=== PATIENT | female | born 1945 | race Caucasian/White ===

== ENCOUNTER → 2018-02-01 10:17 | Outpatient (CLI) | payer OTHER, SELFPAY | PROVIDERS: PCP Family Medicine; Visit Provider Family Medicine | DX: M85.88 Other specified disorders of bone density and structure, other site (principal); Z78.0 Asymptomatic menopausal state; Z82.62 Family history of osteoporosis | CPT/HCPCS: 77080 ==

== ENCOUNTER → 2019-07-25 12:58 | Outpatient (CLI) | payer MEDICARE, SELFPAY | PROVIDERS: PCP Family Medicine; Referring Provider Family Medicine; Visit Provider Family Medicine | DX: Z13.820 Encounter for screening for osteoporosis (principal); M81.0 Age-related osteoporosis without current pathological fracture; Z78.0 Asymptomatic menopausal state; Z82.62 Family history of osteoporosis | CPT/HCPCS: 77080 ==

== ENCOUNTER → 2020-02-06 11:10 | Outpatient (CLI) | payer MEDICARE, SELFPAY ==
--- NOTE | 2020-02-06 | DI.MG.S_ITS ---
BILATERAL DIGITAL SCREENING MAMMOGRAM 3D/2D WITH CAD: 02/06/2020 CLINICAL: Routine screening. Family history of breast cancer. Comparison is made to exams dated: 08/29/2018 mammogram, 08/03/2017 mammogram, and 07/21/2016 mammogram - [facility]. The tissue of both breasts is heterogeneously dense. This may lower the sensitivity of mammography. Current study was also evaluated with a Computer Aided Detection (CAD) system. No significant masses, calcifications, or other findings are seen in either breast. There has been no significant interval change. IMPRESSION: NEGATIVE There is no mammographic evidence of malignancy. A 1 year screening mammogram is recommended. This exam was interpreted at Station ID: [id number]. NOTE: For mammograms, a report in lay terms will be sent to the patient. Approximately 15% of breast malignancies will not be visualized mammographically. In the management of a palpable breast mass, a negative mammogram must not discourage biopsy of a clinically suspicious lesion. Electronically Signed By: Issac izaguirre/dulce:02/06/2020 12:39:14 letter sent: Normal Exam ACR BI-RADS Category 1: Negative 3341F
== END ==
PROVIDERS: PCP Family Medicine; Referring Provider Family Medicine; Visit Provider Family Medicine
DX: Z12.31 Encounter for screening mammogram for malignant neoplasm of breast (principal); Z80.3 Family history of malignant neoplasm of breast
CPT/HCPCS: 77063; 77067

== ENCOUNTER → 2020-10-07 12:39 | Outpatient (CLI) | payer MEDICARE, SELFPAY | PROVIDERS: PCP Family Medicine; Referring Provider Family Medicine; Visit Provider Family Medicine | DX: M81.0 Age-related osteoporosis without current pathological fracture (principal); Z78.0 Asymptomatic menopausal state; Z82.62 Family history of osteoporosis | CPT/HCPCS: 77080 ==

== ENCOUNTER → 2021-03-03 11:41 | Outpatient (CLI) | payer MEDICARE, SELFPAY ==
--- NOTE | 2021-03-03 | DI.MG.S_ITS ---
BILATERAL DIGITAL SCREENING MAMMOGRAM 3D/2D WITH CAD: 03/03/2021 CLINICAL: Routine screening. Family history of breast cancer. Comparison is made to exams dated: 02/06/2020 mammogram - [facility], 08/29/2018 mammogram, and 08/03/2017 mammogram - [facility]. The tissue of both breasts is heterogeneously dense. This may lower the sensitivity of mammography. Current study was also evaluated with a Computer Aided Detection (CAD) system. No significant masses, calcifications, or other findings are seen in either breast. There has been no significant interval change. IMPRESSION: NEGATIVE There is no mammographic evidence of malignancy. A 1 year screening mammogram is recommended. This exam was interpreted at Station ID: [id number]. NOTE: For mammograms, a report in lay terms will be sent to the patient. Approximately 15% of breast malignancies will not be visualized mammographically. In the management of a palpable breast mass, a negative mammogram must not discourage biopsy of a clinically suspicious lesion. Electronically Signed By: Bernardino Fournier M.D., jr/dulce:03/03/2021 16:45:12 letter sent: Normal Exam ACR BI-RADS Category 1: Negative 3341F
== END ==
PROVIDERS: Referring Provider Family Medicine; Visit Provider Family Medicine
DX: Z12.31 Encounter for screening mammogram for malignant neoplasm of breast (principal); Z80.3 Family history of malignant neoplasm of breast
CPT/HCPCS: 77063; 77067

== ENCOUNTER → 2021-08-03 09:39 | Outpatient (CLI) | payer MEDICARE, SELFPAY ==
[2021-08-03 18:27] LABS: Add Manual Diff / Slide Review NO; Basophils Absolute Auto 100 /uL (0-100); Basophils Percent Auto 0.7 % (0-2); Eosinophils Absolute Auto 100 /uL (0-450); Hematocrit 38.7 % (36-46); Hemoglobin 13.2 g/dL (12.0-16.0); Lymphocytes Absolute Auto 1200 /uL (1100-4500); Mean Corpuscular HGB Conc 34.1 % (30-36); Mean Corpuscular Hemoglobin 29.4 PG (26-34); Mean Corpuscular Volume 86.4 fL (80-100); Monocytes Absolute Auto 600 /uL (0-900); Monocytes Percent Auto 7.7 % (3-14); Neutrophils Absolute Auto 5400 /uL (1500-7000); Neutrophils Percent Auto 74.6 % (50-75); Platelet Count 209 X10^3/uL (150-400); Red Blood Cell Count 4.48 X10^6/uL (4.0-5.2); Red Cell Distribution Width 13.5 % (11.6-14.8); White Blood Cell Count 7.3 X10^3/uL (4.5-11.0)
[2021-08-03 19:07] LABS: Alanine Aminotransferase 14 IU/L (<35); Albumin 4.4 g/dL (3.5-5.0); Albumin Globulin Ratio 1.8 (1.0-2.8); Alkaline Phosphatase 47 U/L (38-126); Aspartate Aminotransferase 23 IU/L (14-36); BUN Creatinine Ratio 21.1 (6-22); Bilirubin Total 1.3 mg/dL (0.2-1.3); Blood Urea Nitrogen 16 mg/dL (7-17); Calcium 9.7 mg/dL (8.4-10.2); Carbon Dioxide 31 mmol/L (22-32); Chloride 106 mmol/L (98-107); Estimated Glomerular Filt Rate > 60.0 mL/min (>60); Globulin 2.5 g/dL (1.7-4.1); Glucose 100 mg/dL (80-110); HEMOLYSIS < 15 (0-50); Potassium 4.3 mmol/L (3.4-5.1); Sodium 140 mmol/L (137-145); Total Protein 6.9 g/dL (6.3-8.2)
[2021-08-03 19:23] LABS: TSH w/ Reflex to FT4 1.87 uIU/mL (0.47-4.68)
== END ==
PROVIDERS: PCP Physician Assistant; Visit Provider Physician Assistant
DX: E78.2 Mixed hyperlipidemia (principal); M25.50 Pain in unspecified joint; M81.0 Age-related osteoporosis without current pathological fracture; M79.89 Other specified soft tissue disorders
CPT/HCPCS: 80053; 84443; 85025

== ENCOUNTER → 2021-10-13 08:37 | Outpatient (CLI) | payer MEDICARE, SELFPAY ==
[2021-10-13 19:38] LABS: Vitamin B12 Reflex MMA if <400 888 pg/mL (239-931)
== END ==
PROVIDERS: PCP Physician Assistant; Visit Provider Physician Assistant
DX: R29.90 Unspecified symptoms and signs involving the nervous system (principal)
CPT/HCPCS: 82607

== ENCOUNTER → 2022-03-03 14:35 | Outpatient (CLI) | payer MEDICARE, SELFPAY ==
[2022-03-03 19:32] LABS: BUN Creatinine Ratio 21.3 (6-22); Blood Urea Nitrogen 16 mg/dL (7-17); Estimated Glomerular Filt Rate > 60 mL/min (>60)
== END ==
PROVIDERS: PCP Physician Assistant; Visit Provider Physician Assistant
DX: Z01.812 Encounter for preprocedural laboratory examination (principal)
CPT/HCPCS: 82565; 84520

== ENCOUNTER → 2022-03-19 10:31 | Outpatient (CLI) | payer MEDICARE, SELFPAY ==
--- NOTE | 2022-03-19 10:34 | DI.MRI.S_ITS ---
PROCEDURE: MR HEAD/BRAIN WO/W CON INDICATIONS: Tremor, unspecified TECHNIQUE: Noncontrast axial T1 spin echo, axial T2 fast spin echo, sagittal and axial FLAIR, coronal T2 fast spin echo, axial gradient echo, axial diffusion and ADC through the brain. After the administration of contrast, axial and coronal and sagittal 3D VIBE or T1 spin echo with fat saturation through the brain. COMPARISON: None. FINDINGS: Image quality: Excellent. CSF Spaces: Basal cisterns are patent. No extra-axial fluid collections. Ventricles are normal in size and shape. Brain: No intracranial masses or hemorrhage. Whitehead/white matter interface is normal. Brainstem appears normal. Diffusion-weighted images demonstrate no acute infarct. Normal intravascular flow voids are present. Mild atrophy and multifocal white matter chronic ischemic change noted. Skull and face: Calvarial marrow is normal in signal. Orbits appear normal. Bilateral intraocular lens replacements noted. Sinuses: Sinuses and mastoids appear clear. IMPRESSION: 1. Mild atrophy and trace white matter chronic ischemic change without intracranial hemorrhage, acute infarct or mass lesion Approved by: Pete Waters M.D. on 03/20/2022 at 8:53
--- NOTE | 2022-03-19 10:34 | DI.MG.S_ITS ---
BILATERAL DIGITAL SCREENING MAMMOGRAM 3D/2D WITH CAD: 03/19/2022 CLINICAL: Routine screening. Family history of breast cancer. Comparison is made to exams dated: 03/03/2021 mammogram, 02/06/[address] - [facility], and 08/29/2018 mammogram - [facility]. Both breasts are heterogeneously dense, which may obscure small masses (category c / 51-75% glandular tissue). Current study was also evaluated with a Computer Aided Detection (CAD) system. No significant masses, calcifications, or other findings are seen in either breast. There has been no significant interval change. IMPRESSION: NEGATIVE There is no mammographic evidence of malignancy. A 1 year screening mammogram is recommended. Based on the Tyrer Cuzick model (a risk assessment model) the patient's lifetime risk is 10.0% and her 10 year risk is 9.0%. According to the ACR, ACS, and NCCN guidelines, an annual breast MRI exam along with mammogram is recommended if the patient's lifetime risk is 20% or greater. This exam was interpreted at Station ID: [id number]. NOTE: For mammograms, a report in lay terms will be sent to the patient. Approximately 15% of breast malignancies will not be visualized mammographically. In the management of a palpable breast mass, a negative mammogram must not discourage biopsy of a clinically suspicious lesion. Electronically Signed By: Issac izaguirre/dulce:03/19/2022 13:04:14 letter sent: Normal Exam ACR BI-RADS Category 1: Negative 3341F
== END ==
PROVIDERS: PCP Physician Assistant; Referring Provider Psychiatry & Neurology Neurology; Visit Provider Psychiatry & Neurology Neurology
DX: R25.1 Tremor, unspecified (principal); Z12.31 Encounter for screening mammogram for malignant neoplasm of breast; Z80.3 Family history of malignant neoplasm of breast
CPT/HCPCS: 70553; 77063; 77067; A9579

== ENCOUNTER → 2022-09-12 09:23 | Outpatient (CLI) | payer MEDICARE, SELFPAY ==
[2022-09-12 20:54] LABS: Add Manual Diff / Slide Review NO; Basophils Absolute Auto 100 /uL (0-100); Basophils Percent Auto 0.8 % (0-2); Eosinophils Absolute Auto 200 /uL (0-450); Hematocrit 38.7 % (36-46); Hemoglobin 12.9 g/dL (12.0-16.0); Lymphocytes Absolute Auto 1600 /uL (1100-4500); Lymphocytes Percent Auto 21.1 % (25-40); Mean Corpuscular HGB Conc 33.4 % (30-36); Mean Corpuscular Hemoglobin 28.9 PG (26-34); Mean Corpuscular Volume 86.3 fL (80-100); Monocytes Absolute Auto 800 /uL (0-900); Monocytes Percent Auto 11.1 % (3-14); Neutrophils Absolute Auto 5000 /uL (1500-7000); Platelet Count 255 X10^3/uL (150-400); Red Blood Cell Count 4.49 X10^6/uL (4.0-5.2); Red Cell Distribution Width 13.4 % (11.6-14.8); White Blood Cell Count 7.6 X10^3/uL (4.5-11.0)
[2022-09-12 21:03] LABS: Alanine Aminotransferase 8 IU/L (<35); Albumin Globulin Ratio 1.7 (1.0-2.8); Alkaline Phosphatase 62 U/L (38-126); Aspartate Aminotransferase 21 IU/L (14-36); BUN Creatinine Ratio 21.7 (6-22); Bilirubin Total 1.3 mg/dL (0.2-1.3); Blood Urea Nitrogen 18 mg/dL (7-17); Calcium 9.3 mg/dL (8.4-10.2); Carbon Dioxide 32 mmol/L (22-32); Chloride 100 mmol/L (98-107); Cholesterol 150 mg/dL (140-199); Estimated Glomerular Filt Rate > 60 mL/min (>60); Globulin 2.4 g/dL (1.7-4.1); Glucose 93 mg/dL (80-110); HDL Cholesterol 81 mg/dL (40-60); HEMOLYSIS < 15 (0-50); LDL Cholesterol Calculated 52 mg/dL (<100); Potassium 4.7 mmol/L (3.4-5.1); Sodium 138 mmol/L (137-145); Total Protein 6.4 g/dL (6.3-8.2); Triglycerides 85 mg/dL (35-150)
[2022-09-13 06:01] LABS: TSH w/ Reflex to FT4 1.96 uIU/mL (0.47-4.68)
== END ==
PROVIDERS: PCP Physician Assistant; Visit Provider Physician Assistant
DX: E78.2 Mixed hyperlipidemia (principal); K57.90 Diverticulosis of intestine, part unspecified, without perforation or abscess without bleeding; R49.0 Dysphonia; Z79.899 Other long term (current) drug therapy
CPT/HCPCS: 80053; 80061; 84443; 85025

== ENCOUNTER → 2023-01-10 08:53 | Outpatient (CLI) | payer MEDICARE, SELFPAY ==
[2023-01-10 20:27] LABS: Cholesterol 172 mg/dL (140-199); HDL Cholesterol 75 mg/dL (40-60); LDL Cholesterol Calculated 79 mg/dL (<100); Triglycerides 92 mg/dL (35-150)
== END ==
PROVIDERS: PCP Physician Assistant; Visit Provider Physician Assistant
DX: E78.2 Mixed hyperlipidemia (principal)
CPT/HCPCS: 80061

== ENCOUNTER → 2023-04-11 15:17 | Outpatient (CLI) | payer MEDICARE, SELFPAY ==
--- NOTE | 2023-04-11 | DI.MG.S_ITS ---
BILATERAL DIGITAL SCREENING MAMMOGRAM 3D/2D WITH CAD: 04/11/2023 CLINICAL: Routine screening. Family history of breast cancer. Comparison is made to exams dated: 03/19/2022 mammogram, 03/03/2021 mammogram, and 02/06/2020 mammogram - [facility]. Both breasts are heterogeneously dense, which may obscure small masses (category c / 51-75% glandular tissue). Current study was also evaluated with a Computer Aided Detection (CAD) system. No significant masses, calcifications, or other findings are seen in either breast. There has been no significant interval change. IMPRESSION: NEGATIVE There is no mammographic evidence of malignancy. A 1 year screening mammogram is recommended. Based on the Tyrer Cuzick model (a risk assessment model) the patient's lifetime risk is 9.2% and her 10 year risk is 9.2%. According to the ACR, ACS, and NCCN guidelines, an annual breast MRI exam along with mammogram is recommended if the patient's lifetime risk is 20% or greater. This exam was interpreted at Station ID: [id number]. NOTE: For mammograms, a report in lay terms will be sent to the patient. Approximately 15% of breast malignancies will not be visualized mammographically. In the management of a palpable breast mass, a negative mammogram must not discourage biopsy of a clinically suspicious lesion. Electronically Signed By: Issac izaguirre/dulce:04/12/2023 08:24:11 letter sent: Normal Exam ACR BI-RADS Category 1: Negative 3341F
== END ==
PROVIDERS: PCP Physician Assistant; Referring Provider Physician Assistant; Visit Provider Physician Assistant
DX: Z12.31 Encounter for screening mammogram for malignant neoplasm of breast (principal); Z80.3 Family history of malignant neoplasm of breast
CPT/HCPCS: 77063; 77067

== ENCOUNTER → 2023-07-18 09:25 | Outpatient (CLI) | payer MEDICARE, SELFPAY ==
[2023-07-18 19:16] LABS: Add Manual Diff / Slide Review NO; Basophils Absolute Auto 100 /uL (0-100); Eosinophils Absolute Auto 200 /uL (0-450); Eosinophils Percent Auto 2.2 % (2-4); Hematocrit 40.4 % (36-46); Hemoglobin 13.5 g/dL (12.0-16.0); Lymphocytes Absolute Auto 1900 /uL (1100-4500); Lymphocytes Percent Auto 23.5 % (25-40); Mean Corpuscular HGB Conc 33.5 % (30-36); Mean Corpuscular Hemoglobin 28.5 PG (26-34); Mean Corpuscular Volume 85.1 fL (80-100); Monocytes Absolute Auto 700 /uL (0-900); Monocytes Percent Auto 9.3 % (3-14); Neutrophils Absolute Auto 5200 /uL (1500-7000); Platelet Count 267 X10^3/uL (150-400); Red Blood Cell Count 4.75 X10^6/uL (4.0-5.2); Red Cell Distribution Width 13.3 % (11.6-14.8); White Blood Cell Count 8.1 X10^3/uL (4.5-11.0)
[2023-07-18 19:31] LABS: Alanine Aminotransferase 5 IU/L (<35); Albumin 4.1 g/dL (3.5-5.0); Albumin Globulin Ratio 1.5 (1.0-2.8); Alkaline Phosphatase 59 U/L (38-126); Aspartate Aminotransferase 24 IU/L (14-36); BUN Creatinine Ratio 21.7 (6-22); Bilirubin Total 1.2 mg/dL (0.2-1.3); Blood Urea Nitrogen 18 mg/dL (7-17); Calcium 9.7 mg/dL (8.4-10.2); Carbon Dioxide 29 mmol/L (22-32); Chloride 102 mmol/L (98-107); Cholesterol 148 mg/dL (140-199); Estimated Glomerular Filt Rate > 60 mL/min (>60); Globulin 2.7 g/dL (1.7-4.1); Glucose 97 mg/dL (80-110); HDL Cholesterol 83 mg/dL (40-60); HEMOLYSIS < 15 (0-50); LDL Cholesterol Calculated 47 mg/dL (<100); Potassium 4.7 mmol/L (3.4-5.1); Sodium 138 mmol/L (137-145); Total Protein 6.8 g/dL (6.3-8.2); Triglycerides 91 mg/dL (35-150)
== END ==
PROVIDERS: PCP Physician Assistant; Visit Provider Physician Assistant
DX: E78.2 Mixed hyperlipidemia (principal); Z79.899 Other long term (current) drug therapy
CPT/HCPCS: 80053; 80061; 85025

== ENCOUNTER → 2023-11-22 11:41 | Outpatient (CLI) | payer MEDICARE, SELFPAY ==
--- NOTE | 2023-11-22 11:43 | DI.RAD.S_ITS ---
PROCEDURE: XR DEXA AXIAL SKELETON INDICATIONS: height loss. Last dexa 10/07/20. On Fosamax. COMPARISON: [facility], , XR DEXA AXIAL SKELETON, 10/07/2020, 12:58. FINDINGS: Lumbar Spine: Bone mineral density 0.780 g/cm2, T score -2.4. Left Hip: Bone mineral density 0.733 g/cm2, T score -1.7. Left Femoral Neck: Bone mineral density 0.583 g/cm2, T score -2.4. Right Hip: Bone mineral density 0.778 g/cm2, T score -1.3. Right Femoral Neck: Bone mineral density 0.606 g/cm2, T score -2.2. Fracture Risk Calculation (when applicable): 10-year fracture risk of a major osteoporotic fracture 28% and of a hip fracture 19%. (T score greater or equal to -1.0 to: NORMAL) (T score from -1.1 to -2.4: OSTEOPENIA) (T score less than or equal to -2.5: OSTEOPOROSIS) IMPRESSION: Osteopenia. Follow-up guidelines as follows: Osteoporosis: Consider a repeat DEXA and Vertebral Fracture Assessment (VFA) exam in 2 years or sooner if medically necessary, to reassess this patient's status. Osteopenia: Consider a repeat DEXA in 2-3 years to reassess this patient's status, or if there is a new clinical indication. Normal: Consider a repeat DEXA in 5 years or sooner, or if there is a new clinical indication. All treatment decisions require clinical judgment and consideration of individual patient factors, including patient preferences, comorbidities, previous drug use, risk factors not captured in the FRAX model (e.g., frailty, falls, vitamin D deficiency, increased bone turnover, interval significant decline in bone density ) and possible under- or over-estimation of fracture risk by FRAX. In addition, the NOF Guide recommends that FDA-approved medical therapies be considered in postmenopausal women and men age >= 50 years with a: * Hip or vertebral (clinical or morphometric) fracture * T-score of <=-2.5 at the spine or hip * Ten-year fracture probability by FRAX of >= 3% for hip fracture or >=20% for major osteoporotic fracture. People with diagnosed cases of osteoporosis or at high risk for fracture should have regular bone mineral density tests. For patients eligible for Medicare, routine testing is allowed once every 2 years. The testing frequency can be increased to one year for patients who have rapidly progressing disease, those who are receiving or discontinuing medical therapy to restore bone mass, or have additional risk factors. Dictated by: Akbar Velasco M.D. on 11/22/2023 at 17:16 Approved by: Akbar Velasco M.D. on 11/22/2023 at 17:22
== END ==
PROVIDERS: PCP Physician Assistant; Referring Provider Physician Assistant; Visit Provider Physician Assistant
DX: M81.0 Age-related osteoporosis without current pathological fracture (principal)
CPT/HCPCS: 77080

== ENCOUNTER → 2023-12-07 11:12 | Outpatient (CLI) | payer MEDICARE, SELFPAY ==
[2023-12-07 20:00] LABS: Alanine Aminotransferase 8 IU/L (<35); Albumin 4.4 g/dL (3.5-5.0); Albumin Globulin Ratio 1.8 (1.0-2.8); Alkaline Phosphatase 79 U/L (38-126); Aspartate Aminotransferase 30 IU/L (14-36); Blood Urea Nitrogen 20 mg/dL (7-17); Calcium 9.8 mg/dL (8.4-10.2); Carbon Dioxide 28 mmol/L (22-32); Chloride 106 mmol/L (98-107); Estimated Glomerular Filt Rate > 60 mL/min (>60); Globulin 2.5 g/dL (1.7-4.1); Glucose 106 mg/dL (80-110); HEMOLYSIS 28 (0-50); Potassium 4.6 mmol/L (3.4-5.1); Sodium 138 mmol/L (137-145); Total Protein 6.9 g/dL (6.3-8.2)
== END ==
PROVIDERS: PCP Physician Assistant; Visit Provider Physician Assistant
DX: Z01.812 Encounter for preprocedural laboratory examination (principal); M85.80 Other specified disorders of bone density and structure, unspecified site
CPT/HCPCS: 80053; 82306

== ENCOUNTER → 2023-12-11 12:42 | Outpatient (CLI) | payer MEDICARE, SELFPAY ==
--- NOTE | 2023-12-11 12:44 | DI.CT.S_ITS ---
PROCEDURE: CT CHEST W CON INDICATIONS: persistent cough. SOB. Abnormal CXRs TECHNIQUE: After the administration of intravenous contrast, 5 mm thick sections acquired from the pulmonary apices to the posterior costophrenic angles. 1 mm axial lung, 5 mm thick coronal and sagittal reformats and 7 mm axial MIP were acquired. For radiation dose reduction, the following was used: automated exposure control, adjustment of mA and/or kV according to patient size. COMPARISON: [facility]), CR, XR CHEST 2V, 11/15/2023, 9:59. [facility]), CR, XR CHEST 2V, 12/04/2023, 14:16. FINDINGS: Image quality: Diagnostic. Lower Neck: No enlarged lymph nodes. Thyroid: Normal CT appearance. Axillae: No enlarged lymph nodes. Chest Wall: No chest wall mass. Bones: Unremarkable. Lungs and Pleura: There is a solid enhancing mass involving the posterior right upper lobe and superior segment right lower lobe measuring roughly 5.5 x 5.3 by 4.8 cm. The mass extends to the hilar region, surrounding the right main bronchus and attenuating the right upper lobe bronchus. The mass also abruptly narrows the right main pulmonary artery, attenuating upper and middle lobe branches while a few lower lobe branches remain opacified on this exam. Spiculations extend to the posterior pleural surface of the right lower lobe. There is surrounding regular reticulation extending nearly to the right lung apex. No other nodules or masses. No pleural effusions. Heart: Heart size is normal. No pericardial effusion. Thoracic Vessels: The aorta and pulmonary arteries demonstrate normal size. Mediastinum and Tawny: A discrete subcarinal lymph node measures 1.0 cm short axis. There is confluent low-density soft tissue thickening in the hilar region on the right. No other significant mediastinal or left hilar adenopathy. Esophagus: No wall thickening. No hiatal hernia. Upper Abdomen: 1.3 cm right hepatic lobe indeterminate hypodensity, 2/58. No other liver lesions. Visible portions of upper abdominal organs are otherwise normal. IMPRESSION: 5.5 cm solid enhancing right perihilar mass extending into the right upper and superior segment right lower lobes. Findings are highly suspicious for malignancy. Tissue acquisition via bronchoscopy is recommended for confirmation. Subcarinal mediastinal adenopathy. No contralateral hilar adenopathy or pleural effusion. There is an indeterminate 1.3 cm hypodense liver lesion, statistically most likely a benign lesion. Characterization with hepatic protocol CT or MRI is recommended. Dictated by: Rasheeda Gentile M.D. on 12/11/2023 at 21:51 Approved by: Rasheeda Gentile M.D. on 12/11/2023 at 22:08
== END ==
PROVIDERS: PCP Physician Assistant; Referring Provider Physician Assistant; Visit Provider Physician Assistant
DX: R91.8 Other nonspecific abnormal finding of lung field (principal); R59.0 Localized enlarged lymph nodes; K76.9 Liver disease, unspecified; R05.2 Subacute cough; R06.2 Wheezing; R06.02 Shortness of breath; R93.89 Abnormal findings on diagnostic imaging of other specified body structures
CPT/HCPCS: 71260; Q9967

== ENCOUNTER → 2023-12-14 11:10 | Outpatient (CLI) | payer MEDICARE, SELFPAY ==
[2023-12-14 20:01] LABS: Add Manual Diff / Slide Review NO; Basophils Absolute Auto 0 /uL (0-100); Basophils Percent Auto 0.6 % (0-2); Eosinophils Absolute Auto 100 /uL (0-450); Eosinophils Percent Auto 1.4 % (2-4); Hemoglobin 13.1 g/dL (12.0-16.0); Lymphocytes Absolute Auto 1900 /uL (1100-4500); Lymphocytes Percent Auto 22.4 % (25-40); Mean Corpuscular HGB Conc 33.7 % (30-36); Mean Corpuscular Hemoglobin 28.3 PG (26-34); Mean Corpuscular Volume 84.1 fL (80-100); Monocytes Absolute Auto 800 /uL (0-900); Monocytes Percent Auto 9.1 % (3-14); Neutrophils Absolute Auto 5800 /uL (1500-7000); Neutrophils Percent Auto 66.5 % (50-75); Platelet Count 280 X10^3/uL (150-400); Red Blood Cell Count 4.63 X10^6/uL (4.0-5.2); Red Cell Distribution Width 13.6 % (11.6-14.8); White Blood Cell Count 8.6 X10^3/uL (4.5-11.0)
[2023-12-14 20:13] LABS: Alanine Aminotransferase 8 IU/L (<35); Albumin 4.3 g/dL (3.5-5.0); Albumin Globulin Ratio 1.7 (1.0-2.8); Alkaline Phosphatase 82 U/L (38-126); Aspartate Aminotransferase 24 IU/L (14-36); BUN Creatinine Ratio 19.5 (6-22); Blood Urea Nitrogen 17 mg/dL (7-17); Carbon Dioxide 29 mmol/L (22-32); Chloride 105 mmol/L (98-107); Estimated Glomerular Filt Rate > 60 mL/min (>60); Globulin 2.5 g/dL (1.7-4.1); Glucose 98 mg/dL (80-110); HEMOLYSIS < 15 (0-50); Potassium 4.4 mmol/L (3.4-5.1); Sodium 139 mmol/L (137-145); Total Protein 6.8 g/dL (6.3-8.2)
[2023-12-14 20:54] LABS: Erythrocyte Sedimentation Rate 19 MM/HR (0-20)
== END ==
PROVIDERS: PCP Physician Assistant; Visit Provider Family Medicine
DX: R91.8 Other nonspecific abnormal finding of lung field (principal); R06.02 Shortness of breath; R05.9 Cough, unspecified
CPT/HCPCS: 80053; 85025; 85651

== ENCOUNTER 2024-01-26 16:54 | Inpatient (IN) | payer MEDICARE, SELFPAY ==
[2024-01-26] VITALS (16 sets, daily range): BP systolic 100–128; BP diastolic 65–83; PULSE 67–84; RESP 14–22; TEMP 36.1–37; O2SAT 95–100; BMI 22.3
--- NOTE | 2024-01-26 | DI.RAD.S_ITS ---
PROCEDURE: XR CHEST 1V INDICATIONS: POST BIOPSY RIGHT LUNG TECHNIQUE: One view of the chest was acquired. COMPARISON: [facility], CT, CT BIOPSY LUNG RT, 01/26/2024, 10:14. [facility], CT, CT CHEST W CON, 12/11/2023, 12:58. [facility] CR, XR CHEST 2V, 12/04/2023, 14:16. [facility] ([place]), CR, XR CHEST 2V, 11/15/2023, 9:59. FINDINGS: Surgical changes and devices: None. Lungs and pleura: Redemonstration of masslike lesions within the right lung. Small pneumothorax is present post biopsy. Mediastinum: Mediastinal contours appear normal. Heart size is normal. Bones and chest wall: No suspicious bony lesions. Overlying soft tissues appear unremarkable. IMPRESSION: Small right pneumothorax is seen post lung biopsy. Redemonstration of masslike lesions within the right lung. Dictated by: Andrew Uribe M.D. on 01/26/2024 at 11:21 Approved by: Andrew Uribe M.D. on 01/26/2024 at 11:23
--- NOTE | 2024-01-26 | PATH_ITS ---
[facility] Accession Number: [id number] No. of containers..02 Tissue . 01 Material submitted: . PART A: lung - RIGHT LUNG MASS PART B: lung - LUNG MASS IN SALINE . 01 Diagnosis: A. RIGHT LUNG MASS, BIOPSY: Invasive squamous cell carcinoma, moderately differentiated. . B. LUNG MASS IN SALINE, BIOPSY: Lung tissue with rare atypical cells. MRV 01/30/2024 1644 Local . 01 Comment: Dr. Lawrence is called with the preliminary findings on this case on 01/30/24, but does not receive such diagnosis. Per Dr. Lawrence, part B is from the same location as part A: right lung mass. . Dr. Rivera's office has been called on 01/30/24, but no call back was received. . 01 Electronically signed: . Wendi Gomez MD, Pathologist NPI- [id number] . 01 Gross description: . A. Received in formalin with two identifiers and no site on jar, are four james to brown needle core biopsies ranging from 0.3 to 1.7 cm in length by 0.1 cm in diameter. Submitted entirely in cassette A1. B. Received in saline and subsequently placed in formalin per Dr. Rogers with two identifiers and no site, is a single james needle core 1.5 cm in length. Submitted entirely in cassette B1. ([id number]) /CINTHIA 01/28/2024 1938 Local . 01 Microscopic: . A panel of immunostains is performed on block A1 in order to evaluate the invasive carcinoma, with appropriately staining external controls. The invasive carcinoma demonstrates the following immunoprofile, in support of the diagnosis. . P40: Positive. CK5/6: Positive. TTF1: Negative. Napsin: Negative. . * This test was developed and its performance characteristics determined by [facility]. It has not been cleared or approved by the U.S. Food and Drug Administration. The FDA has determined that such clearance or approval is not necessary. This test is used for clinical purposes. It should not be regarded as investigational or for research. . 01 Pathologist provided ICD-10: C34.91 . 01 CPT . 407997, 309733, B33052, J19106 Performed at: [address] [id number] MD [place] Rogers MD Phone: [phone]
--- NOTE | 2024-01-26 | DI.CT.S_ITS ---
PROCEDURE: CT-guided chest tube insertion INDICATIONS: Post biopsy right chest pneumothorax, small but increasing size . The patient progressively worsening right chest pain COMPARISON: [facility], CR, XR CHEST 1V, 01/26/2024, 13:44. Chest x-ray 01/26/2024, CT lung biopsy 01/26/2024, CT chest 12/11/2023 PRE-PROCEDURE DIAGNOSIS: Right lung pneumothorax POST-PROCEDURE DIAGNOSIS: Same OPERATORS: Yifan Lawrence MD CONSENT: The risks, benefits, and alternatives of the planned procedure were explained in detail to the patient and/or patient's family/DPOA. Questions were answered, and a written informed consent was obtained. TIME OUT: A verification process was completed by the entire team to confirm the patient, procedure, site, allergies, etc. STERILE PREPARATION: All elements of maximal sterile barrier technique were followed, including use of cap, mask, gown, gloves, drapes, chlorhexidine 2%/isopropyl alcohol/povidone-iodine, and hand hygiene. DESCRIPTION OF PROCEDURE: Patient was placed supine position in the CT scanner. Preprocedure CT shows small right pneumothorax with small right pleural effusion. A site of access was marked by the attending physician. Maximal sterile barrier precautions were employed. 10 cc of 1% lidocaine given subcutaneously and into the tissues at the marked site. Initially, a Wiggio emergency pneumothorax kit was deployed as per protocol however it it only moderately relieved the pneumothorax due to the catheter being apposed to the lung. Therefore this could catheter was exchanged for a 8 Ecuadorean pigtail over an 035 wire. Approximately 300 cc of air and 50 cc of bloody pleural fluid were aspirated. Small amount of bloody pleural fluid is expected after lung biopsy. The chest tube was connected to of one-way valve. Final CT shows well-positioned right chest with interval decrease in size of pneumothorax.. The patient tolerated the procedure well and was not in pain during the procedure. MEDICATIONS: Lidocaine 1% subcutaneous ESTIMATED BLOOD LOSS: Minimal. COMPLICATIONS: None immediate. FINDINGS: Small right pneumothorax and small right pleural effusion was seen on preprocedure images. Postprocedure only a small nonsignificant pneumothorax remains. Removed approximately 300 cc of air and 50 cc of bloody pleural fluid through the chest tube. IMPRESSION: Technically successful 8 Ecuadorean chest tube placement. PLAN: Follow-up chest x-ray will be obtained in 3 hours. If pneumothorax does not resolve, the chest tube will be disconnected from one way and connected to a atrium device and placed on intermediate wall suction. If pneumothorax resolves, chest tube will be clamped tomorrow. Once chest tube is clamped and pneumothorax does not return in 24 hours patient may be discharged home if she meets other criteria. Dictated by: Yifan Lawrence M.D. on 01/26/2024 at 16:22 Approved by: Yifan Lawrence M.D. on 01/26/2024 at 16:39
--- NOTE | 2024-01-26 08:58 | DI.CT.S_ITS ---
PROCEDURE: CT BIOPSY LUNG RT Sedation analgesia for 30 minutes. INDICATIONS: Right lung mass, right lung biopsy TECHNIQUE: The indications, alternatives, benefits, risks, and possible complications of the procedure were communicated to the patient. Informed written consent from the patient was obtained and placed in the chart. Continuous EKG and hemodynamic monitoring was started by trained personnel. The patient was brought to the CT suite and supervisor laundry spiral CT imaging was performed with localization grid. The appropriate site for percutaneous access to the biopsy target was marked, was prepped and draped sterilely, and was infused with local anaesthesia. Under CT guidance, a core biopsy trocar and needle set was advanced to the biopsy target, and specimen(s) were obtained. The trocar and needle were then removed, and the patient was sent for post-procedure monitoring. COMPARISON: [facility], CR, XR CHEST 1V, 01/26/2024, 10:48. FINDINGS: Biopsy site: Right lung lesion Needle: 17/18 gauge biopsy needle with introducer trocar. Number of passes: 4 Medications: 1% lidocaine for local anaesthesia. IV Fentanyl and Versed for conscious sedation for 30 minutes (see nursing record). Complications: Small right pneumothorax will be followed up by x-rays. IMPRESSION: Successful CT-guided biopsy of cavitating large right lung lesion Dictated by: Yifan Lawrence M.D. on 01/26/2024 at 12:28 Approved by: Yifan Lawrence M.D. on 01/26/2024 at 12:41
[2024-01-26 09:52] LABS: Hematocrit 37.8 % (36-46); Platelet Count 367 X10^3/uL (150-400)
[2024-01-26 09:54] LABS: INR 1.1 (0.9-1.3); Prothrombin Time 12.2 SECONDS (9.4-12.5)
[2024-01-26 09:57] LABS: PTT Partial Thromboplastin Tim 35 SECONDS (25.1-36.5)
[2024-01-26] MEDS: MIDAZOLAM 2 MG/2 ML VIAL IV (10:50)
[2024-01-26] MEDS: fentaNYL 100 MCG/2 ML INJ IV (10:50)
--- NOTE | 2024-01-26 12:34 | SUR.PHASEII ---
Patient resting quietly. Denies any SOB; VSS. Lungs CTA bilaterally; awaiting second CXR.
--- NOTE | 2024-01-26 13:50 | DI.RAD.S_ITS ---
PROCEDURE: XR CHEST 1V INDICATIONS: RT LUNG POST BIOPSY TECHNIQUE: One view of the chest was acquired. COMPARISON: [facility], CR, XR CHEST 1V, 01/26/2024, 10:48. [facility], XR CHEST 2V, 12/04/2023, 14:16. FINDINGS: Surgical changes and devices: None. Lungs and pleura: Cavitating large right lung mass again noted. Right apical pneumothorax has slightly increased in size. No large pleural effusion seen. Mediastinum: Cardiac silhouette appears top normal in size, unchanged Bones and chest wall: Visualized bones appear grossly intact IMPRESSION: Interval increased size of small to moderate sized right apical pneumothorax; chest tube placement is indicated Dictated by: Yifan Lawrence M.D. on 01/26/2024 at 14:04 Approved by: Yifan Lawrence M.D. on 01/26/2024 at 14:07
--- NOTE | 2024-01-26 14:05 | SUR.PHASEII ---
Repeat CXR completed. Awaiting results.
--- NOTE | 2024-01-26 14:24 | SUR.PHASEII ---
Notified patient of need to admit due to increasing size of pneumothorax. VSS. Dr Lawrence to bedside. Dr Kay, general surgery, aware of necessity of admit. Solutions Developer notified.
[2024-01-26] MEDS: ACETAMINOPHEN 325 MG TABLET 650 MG PO (15:59)
--- NOTE | 2024-01-26 16:34 | SUR.PHASEII ---
1445-patient went to CT for procedure. 1545-patient back from CT, recovered in [facility]. Pt stable. Report to Haider ONOFRE.
--- NOTE | 2024-01-26 18:30 | DI.RAD.S_ITS ---
PROCEDURE: XR CHEST 1V INDICATIONS: PTX TECHNIQUE: One view of the chest was acquired. COMPARISON: [facility], CT, CT CHEST WO CON, 01/26/2024, 14:25. [facility], CR, XR CHEST 1V, 01/26/2024, 13:44. [facility], CR, XR CHEST 1V, 01/26/2024, 10:48. FINDINGS: Surgical changes and devices: Pleural drain projecting in the region of the right lung base. Lungs and pleura: Right-sided pneumothorax measuring 1.3 cm, (previously 2.9 cm at 1:44 p.m.). Small right pleural effusion. Cavitary lesion in the right upper lobe is stable. Mediastinum: Mediastinal contours appear normal. Heart size is normal. Bones and chest wall: No suspicious bony lesions. Overlying soft tissues appear unremarkable. IMPRESSION: Small right pneumothorax is decreased in size. Right pleural drain is in place. Small right pleural effusion. Right upper lobe cavitary lesion. Dictated by: Akbar Velasco M.D. on 01/26/2024 at 20:20 Approved by: Akbar Velasco M.D. on 01/26/2024 at 20:23
[2024-01-27] VITALS (7 sets, daily range): BP systolic 106–139; BP diastolic 68–79; PULSE 72–80; RESP 16–22; TEMP 36.2–36.9; O2SAT 94–98
[2024-01-27 05:37] LABS: Add Manual Diff / Slide Review NO; Basophils Absolute Auto 0 /uL (0-100); Basophils Percent Auto 0.5 % (0-2); Eosinophils Absolute Auto 200 /uL (0-450); Eosinophils Percent Auto 2.4 % (2-4); Hematocrit 35.1 % (36-46); Hemoglobin 11.8 g/dL (12.0-16.0); Lymphocytes Absolute Auto 1400 /uL (1100-4500); Lymphocytes Percent Auto 16.8 % (25-40); Mean Corpuscular HGB Conc 33.7 % (30-36); Mean Corpuscular Hemoglobin 27.8 PG (26-34); Mean Corpuscular Volume 82.6 fL (80-100); Monocytes Absolute Auto 800 /uL (0-900); Neutrophils Absolute Auto 5900 /uL (1500-7000); Neutrophils Percent Auto 71.3 % (50-75); Platelet Count 340 X10^3/uL (150-400); Red Blood Cell Count 4.25 X10^6/uL (4.0-5.2); Red Cell Distribution Width 13.5 % (11.6-14.8); White Blood Cell Count 8.3 X10^3/uL (4.5-11.0)
[2024-01-27 05:49] LABS: Alanine Aminotransferase 8 IU/L (<35); Albumin 3.7 g/dL (3.5-5.0); Albumin Globulin Ratio 1.4 (1.0-2.8); Alkaline Phosphatase 71 U/L (38-126); Aspartate Aminotransferase 21 IU/L (14-36); BUN Creatinine Ratio 14.8 (6-22); Bilirubin Total 0.9 mg/dL (0.2-1.3); Blood Urea Nitrogen 13 mg/dL (7-17); Calcium 9.2 mg/dL (8.4-10.2); Carbon Dioxide 26 mmol/L (22-32); Chloride 105 mmol/L (98-107); Estimated Glomerular Filt Rate > 60 mL/min (>60); Globulin 2.7 g/dL (1.7-4.1); Glucose 103 mg/dL (80-110); HEMOLYSIS < 15 (0-50); Potassium 4.5 mmol/L (3.4-5.1); Sodium 135 mmol/L (137-145); Total Protein 6.4 g/dL (6.3-8.2)
[2024-01-27] MEDS: CALCIUM CARBONATE 500 MG TAB PO (09:41)
[2024-01-27] MEDS: CHOLECALCIFEROL (VITAMIN D3) 1,000 UNIT TABLET 2000 UNIT PO (09:41)
[2024-01-27] MEDS: MULTIVITAMIN 1 TABLET 1 TAB PO (09:41)
[2024-01-27] MEDS: CARBIDOPA-LEVODOPA 25/100 TABLET 1 EACH PO ×3 (09:41→18:30)
[2024-01-27] MEDS: MAGNESIUM OXIDE 400 MG TABLET PO (09:41)
--- NOTE | 2024-01-27 09:52 | P.HP_ITS ---
History of Present Illness History of Present Illness Date Patient Seen: 01/27/24 Time Patient Seen: 09:53 Chief complaint: RIGHT LUNG MASS Narrative: Patient under went IR biopsy of right lung mass yesterday that resulted in Right pneumothorax. Chest tube was place and PTX was smaller. No desaturations over night. Device is on a Heimlich Valve not to wall suction. Not currently SOB [facility] Medical History Screening for colon cancer Postmenopausal estrogen deficiency Encounter for gynecological examination (general) (routine) without abnormal findings Screening for breast cancer Encounter for breast cancer screening other than mammogram Screening for cervical cancer Family History Brother Age: 74 Heart disease Hypertension High cholesterol Diverticulitis Father Heart disease Diverticulitis Mother Cancer Hypertension Grandfather Heart disease Grandmother Heart disease Social History household members: none Smoking Status: Never smoker alcohol intake: never Meds Home Medications and Allergies Home Medications Medication Instructions Recorded Confirmed Type calcium 500 mg tablet 500 mg PO DAILY 08/03/21 01/26/24 History cholecalciferol (vitamin D3) 50 50 mcg PO DAILY 08/03/21 01/26/24 History mcg (2,000 unit) capsule magnesium oxide 500 mg capsule 500 mg PO DAILY 08/03/21 01/26/24 History multivitamin 1 tab PO DAILY 08/03/21 01/26/24 History simvastatin 10 mg tablet 10 mg PO ONCE PM #90 tabs 10/18/23 01/26/24 Rx albuterol sulfate 90 mcg/actuation See Rx Instructions inhalation 10/30/23 01/26/24 Rx aerosol inhaler (Ventolin HFA) Q4-6H PRN shortness of breath or wheezing, coughing spell #6.7 grams carbidopa 25 mg-levodopa 100 mg 1 tab PO QID 11/14/23 01/26/24 History tablet benzonatate 200 mg capsule 200 mg PO BID PRN cough #20 caps 11/16/23 01/26/24 Rx alendronate 70 mg tablet See Rx Instructions .Route 11/20/23 01/26/24 Rx .COMPLEX #12 tabs rasagiline 0.5 mg tablet 0.5 mg PO DAILY 01/26/24 01/26/24 History Allergies Allergy/AdvReac Type Severity Reaction Status Date / Time No Known Drug Allergies Allergy Verified 01/26/24 09:37 Review of Systems Review of Systems ROS: Yes All systems reviewed with the patient and are negative except as otherwise documented Exam Vital Signs (past 8 hours): - 01/27/24 03:00 01/27/24 05:47 Temperature 97.4 F L 97.6 F Pulse Rate 80 76 Respiratory Rate 16 16 Blood Pressure 137/79 139/78 Pulse Oximetry 94 96 Oxygen Flow Rate 0 0 Oxygen Delivery Method Room Air Oxygen Flow Rate 0 Const General: cooperative and frail appearing Nutritional Appearance: thin Orientation: alert, awake and oriented x3 HENMT Head: normocephalic and atraumatic Ears: hearing grossly normal bilaterally Eyes General: appearance normal, both eyes and all related structures Sclera: sclerae normal Neck Neck: trachea midline Chest Chest: normal inspection of the chest and tenderness (at chest tube insertion site of anterior chest) Resp Effort & Inspection: normal respiratory effort and able to speak in complete sentences Cardio Rate: regular rate Rhythm: regular rhythm GI Inspection: non-distended Palpation: soft Skin General: No elasticity normal and atrophy Hair: normal Neuro General: patient alert, patient awake and patient oriented x3 Cognition: normal cognition Psych Appearance: grossly normal Mental Status: mental status grossly normal Judgment: judgment good Objective Labs 01/27/24 05:09 01/27/24 05:09 Labs: Laboratory Results - last 24 hr 01/26/24 01/27/24 09:20 05:09 WBC 8.3 RBC 4.25 Hgb 11.8 L Hct 37.8 35.1 L MCV 82.6 MCH 27.8 MCHC 33.7 RDW 13.5 Plt Count 367 340 Neut % (Auto) 71.3 Lymph % (Auto) 16.8 L Hyde % (Auto) 9.0 Eos % (Auto) 2.4 Baso % (Auto) 0.5 Neut # (Auto) 5900 Lymph # (Auto) 1400 Hyde # (Auto) 800 Eos # (Auto) 200 Baso # (Auto) 0 PT 12.2 INR 1.1 APTT 35 Sodium 135 L Potassium 4.5 Chloride 105 Carbon Dioxide 26 BUN 13 Creatinine 0.88 Estimated GFR > 60 BUN/Creatinine Ratio 14.8 Glucose 103 Calcium 9.2 Total Bilirubin 0.9 AST 21 ALT 8 Alkaline Phosphatase 71 Total Protein 6.4 Albumin 3.7 Globulin 2.7 Albumin/Globulin Ratio 1.4 Assessment & Plan Assessment & Plan narrative: Right pneumothorax following right lung biopsy of mass. Plan: Right chest tube inserted by IR on a Heimlich valve. Post procedure Xray shows improvement of resolution in PXT. Will repeat CXR this afternoon with goal of pulling chest tube tonight or tomorrow for discharge to home. Lives on [place] Time-Based Coding :: 45 minutes spent with patient and on the chart (including review of chart, obtaining history, exam, reviewing outside data, placing orders, documenting exam and treatment plan, and counseling patient) on 01/27/2024. Quality VTE Deep Vein Thrombosis/Pulmonary Embolism Present on Admission: No
--- NOTE | 2024-01-27 11:47 | PC.NURSE ---
Addendum entered by Amita Cannon R.N. 01/27/24 16:30: Dr. Kay in to assess pt and dc'd flutter valve/chest tube. occlusive drsg applied. Pt tolerated well Addendum entered by Amita Cannon R.N. 01/27/24 14:57: pt ambulated to bathroom and washed self up. Suddenly flutter valve filled with blood. Pt denied SOB or increased pain. Note faxed to surgery for Dr. Kay who is doing surgery. Called PACU but no answer. Coordinator Orin spoke to Michelle ONOFRE who will notify Dr. Kay. Original Note: order for chest tube to water seal per Dr. Kay. Clarified this order with Dr. Kay and order changed to maintain flutter valve.
--- NOTE | 2024-01-27 12:50 | CM.DANOTE ---
Patient is a 78 yo female who was admitted INPT Status on 01/26/24 for lung biopsy. Pt has [facility] and [employer] for insurance and her PCP is Lynette Bradford. EMR was reviewed. Per Surgeon, pt developed pneumothorax after lung biopsy and chest tube placed and draining well and making improvements. Pt to have imaging to confirm size of pneumonthorax and chest tube placement. Per Rn, pt independent in room. SW met bedside with pt and her friend and explained role and pt confirms she lives on [facility] at home alone and pt is very active and independent at baseline, does not use DME for ambulation, still drives and denies hx of HH or SNF. Pt states he son Grupo is her POA and he lives in [place]. Pt has local supportive friends and her friend bedside confirms she will transport pt back to [place] at d/c and she and her can assist with driving or chores or any assist needs. Pt confirms she already has Priority Board[place]. Pt preference is home with friend to transport and she does not anticipate any discharge needs at this time. Plan: SW to follow for chest tube removal and confirmation of medically stable back to [facility] via her friend POV and already has ferry boarding pass. NATALIA Rashid Discharge Planning/Care Management CM Discharge Assessment Start: 01/27/24 12:48 Freq: Status: Active Protocol: Document 01/27/24 12:48 BF (Rec: 01/27/24 12:50 BF [id number]) Discharge Planning Assessment Assigned Theater Projectionist NATALIA Bettencourt DPOA/Assigned Designee Name bessy Little Contact Information [phone] Advance Directives? No Advance Directives on File No History Provided By Patient,Friend,Medical Record Has Patient been admitted in last 30 No days? Prior Living Arrangements House Household Members none Type of transporation used prior to Drives own vehicle admit Independent with ADL's Yes Is patient alert and oriented? Yes Caregiver for Another No Barriers to Discharge No Discharge Plan Home Transportation Arrangement Friend bedside and confirms she will transport pt back at d/c Referrals Initiated None needed Whiteboard Updated in Patient Room with Yes name and ext. # of Theater Projectionist Review Status In Process Please Provide Date Initial DC 01/27/24 Assessment Was Performed Next Review Type Continued Stay Review
--- NOTE | 2024-01-27 15:00 | DI.RAD.S_ITS ---
PROCEDURE: XR CHEST 1V INDICATIONS: PTX TECHNIQUE: One view of the chest was acquired. COMPARISON: [facility], CR, XR CHEST 1V, 01/26/2024, 18:24. [facility], CR, XR CHEST 1V, 01/26/2024, 13:44. FINDINGS: Surgical changes and devices: Right basilar pigtail catheter is unchanged in position. Lungs and pleura: There is no significant interval change in the size of the right apical pneumothorax or the cavitary right lung lesion. Mediastinum: Mediastinal contours appear normal. Heart size is normal. Bones and chest wall: No suspicious bony lesions. Overlying soft tissues appear unremarkable. IMPRESSION: Unchanged chest tube position and persistent right apical pneumothorax. Dictated by: Daniella Rowell M.D. on 01/27/2024 at 14:36 Approved by: Daniella Rowell M.D. on 01/27/2024 at 14:39
[2024-01-27] MEDS: SODIUM CHLORIDE 0.9% FLUSH 10 ML IV (20:26)
[2024-01-28 05:15] VITALS: BP 120/73; PULSE 94; RESP 16; TEMP 36.4; O2SAT 94
--- NOTE | 2024-01-28 07:00 | DI.RAD.S_ITS ---
PROCEDURE: XR CHEST 1V INDICATIONS: chest tube removed TECHNIQUE: One view of the chest was acquired. COMPARISON: [facility], CR, XR CHEST 1V, 01/27/2024, 15:09. [facility], CR, XR CHEST 1V, 01/26/2024, 18:24. FINDINGS: Surgical changes and devices: None. Lungs and pleura: Trace right apical pneumothorax appears mildly improved compared to prior. Redemonstration of cavitary right lung lesion. Mediastinum: Mediastinal contours appear normal. Heart size is normal. Bones and chest wall: No suspicious bony lesions. Overlying soft tissues appear unremarkable. IMPRESSION: Interval removal of right pleural catheter. Trace right able pneumothorax is mildly improved compared to prior. Stable appearance of cavitary right lung lesion. Dictated by: Andrew Uribe M.D. on 01/28/2024 at 10:24 Approved by: Andrew Uribe M.D. on 01/28/2024 at 10:35
[2024-01-28] MEDS: CHOLECALCIFEROL (VITAMIN D3) 1,000 UNIT TABLET 2000 UNIT PO (08:16)
[2024-01-28] MEDS: CARBIDOPA-LEVODOPA 25/100 TABLET 1 EACH PO (08:16)
[2024-01-28] MEDS: MAGNESIUM OXIDE 400 MG TABLET PO (08:16)
[2024-01-28] MEDS: CALCIUM CARBONATE 500 MG TAB PO (08:16)
[2024-01-28] MEDS: MULTIVITAMIN 1 TABLET 1 TAB PO (08:16)
--- NOTE | 2024-01-28 08:38 | PC.NURSE ---
Patient had her xray this morning, she ate well at breakfast and has taken her medications without any difficulty. BS are decreased in the bases, and patient is on room air. She denies difficulty breathing and is watching television now.
[2024-01-28 09:00] VITALS: BP 123/81; PULSE 95; RESP 22; TEMP 36.3; O2SAT 95
--- NOTE | 2024-01-28 11:26 | CM.DPC ---
DCP Cont. Reviewed EMR and team rounds for status updates. Pt has been medically cleared for home d/c, she has a medical priority boarding pass, her dtr is present and will be transporting her home this afternoon. No further DCP needs indicated at this time.
--- NOTE | 2024-01-28 12:01 | P.DS_ITS ---
History of Present Illness History of Present Illness Date Patient Seen: 01/28/24 Time Patient Seen: 12:02 Chief complaint: RIGHT LUNG MASS Narrative: Patient under went IR biopsy of right lung mass yesterday that resulted in Right pneumothorax. Chest tube was place and PTX was smaller. No desaturations over night. Device is on a Heimlich Valve not to wall suction. Not currently SOB Discharge Providers Provider Discharge Date: 01/28/24 Primary care physician: Lynette Bradford PA-C Discharge provider: Zoë Kay MD Summary Hospital Course Discharge Diagnosis: Right pneumothorax associated with lung biopsy Hospital Course: Pigtail chest tube placed by IR. >24hrs of water seal with stable small apical PTX. Chest tube removed and patient watched overnight. Status at Discharge Cognitive/behavioral status at discharge: at baseline, oriented Functional status at discharge: independent ambulation Overall status at discharge: patient is progressing back to baseline Time Spent with Patient Time spent: Less than 30 minutes Exam Vital Signs (past 8 hours): - 01/28/24 05:15 01/28/24 09:00 Temperature 97.6 F 97.4 F L Pulse Rate 94 H 95 H Respiratory Rate 16 22 Blood Pressure 120/73 123/81 Pulse Oximetry 94 95 Oxygen Flow Rate 0 0 Oxygen Delivery Method Room Air Oxygen Flow Rate 0 Narrative Exam Narrative: Normal respiratory pattern, no issues Objective Labs 01/27/24 05:09 01/27/24 05:09 [facility] Medical History Screening for colon cancer Postmenopausal estrogen deficiency Encounter for gynecological examination (general) (routine) without abnormal findings Screening for breast cancer Encounter for breast cancer screening other than mammogram Screening for cervical cancer Family History Brother Age: 74 Heart disease Hypertension High cholesterol Diverticulitis Father Heart disease Diverticulitis Mother Cancer Hypertension Grandfather Heart disease Grandmother Heart disease Social History household members: none Smoking Status: Never smoker alcohol intake: never Discharge Assessment & Plan Assessment and Plan Assessment: Right PTX following lung biopsy with resolution to a small apical PTX that was stable for 36hrs. Plan of Treatment: Home and follow up with oncology. Discharge Plan Discharge Plan Patient Disposition: Home Nursing Discharge Comment: You may resume your normal diet and home medications as previous. Follow up with your doctor as directed. Your biopsy results should be available in approximately7-10 day. Please return to the Emergency room if you develop chest pain or shortness of breath. Discharge orders & Medications Discharge Orders: Discharge (Order); Ordered 01/28/24 Ordered By: Zoë Kay Prescriptions: Continued simvastatin 10 mg tablet 10 mg PO ONCE PM Qty: 90 3RF benzonatate 200 mg capsule 200 mg PO BID PRN (Reason: cough) Qty: 20 0RF alendronate 70 mg tablet See Rx Instructions .ROUTE .COMPLEX Qty: 12 0RF Rx Instructions: Take 1 tablet (70 mg) by mouth every 7 days. Give with water, 30 min before first food/drink/med intake, & avoid lying down for 30 min.; rasagiline 0.5 mg tablet 0.5 mg PO DAILY carbidopa-levodopa 25-100 mg tablet 1 tab PO QID cholecalciferol (vitamin D3) 50 mcg (2,000 unit) capsule 50 mcg PO DAILY calcium 500 mg tablet 500 mg PO DAILY magnesium oxide 500 mg capsule 500 mg PO DAILY multivitamin Tablet 1 tab PO DAILY albuterol sulfate [Ventolin HFA] 90 mcg/actuation HFA aerosol inhaler See Rx Instructions inhalation Q4-6H PRN (Reason: shortness of breath or wheezing, coughing spell) Qty: 6.7 0RF Rx Instructions: 1 to 2 puffs inhaled every 4-6 hours PRN; Follow up/Referrals: Lynette Bradford PA-C [Primary Care Provider] - Diet/Activity/Treatments Diet: Diet as Tolerated Skin/Wound/Dressing Care Report to your healthcare provider any signs of infection, such as:: chills, fever and increased pain Visit Report/Discharge Packet Instructions: DI for Needle Biopsy of the Lung and Pleura Stand Alone Forms: Patient Portal/API Discharge Data Primary Care Provider: Lynette Bradford Attending Provider: Tre Rivera Quality VTE Deep Vein Thrombosis/Pulmonary Embolism Present on Admission: No
== END 2024-01-28 14:00 | disposition home or self-care (01) | DRG 201 ==
LOC: OR 01-29 09:21 → AC 01-29 09:21
PROVIDERS: Radiology Diagnostic Radiology; Surgery; Admitting Provider Internal Medicine Critical Care Medicine; PCP Physician Assistant; Referring Provider Internal Medicine Critical Care Medicine; Visit Provider Internal Medicine Critical Care Medicine
PROC: BB24ZZZ Computerized Tomography (CT Scan) of Bilateral Lungs (ICD-10-PCS; CPT 32408; principal; 2024-01-26 09:00)
DX: J95.811 Postprocedural pneumothorax (principal)
CPT/HCPCS: 32408; 71045; 71250; 80053; 85014; 85025; 85049; 85610; 85730; J2250; J3010

== ENCOUNTER → 2024-02-28 12:32 | Outpatient (CLI) | payer MEDICARE, SELFPAY ==
[2024-01-26 17:40] VITALS: BMI 22.3
--- NOTE | 2024-02-28 12:34 | DI.MRI.S_ITS ---
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 After the administration of contrast, axial and coronal and sagittal T1 spin echo with fat saturation through the brain. COMPARISON: [facility], [place], PET NECK TO MID THIGH, 02/21/2024, 11:55. [facility], , MR HEAD/BRAIN WO/W CON, 03/19/2022, 10:45. FINDINGS: Image quality: Excellent. CSF spaces: Basal cisterns are patent. No extra-axial fluid collections. Ventricles are normal in size and shape. Brain: No midline shift. No intracranial bleeds or masses. No abnormal intracranial enhancement. There is cerebral volume loss for age. There is periventricular white matter chronic small vessel ischemic change. The brainstem appears normal. Diffusion-weighted images demonstrate no acute infarct. No chronic ischemic insults. Normal intravascular flow voids are present. Skull and face: Calvarial marrow is normal in signal. Orbits appear normal. Sinuses: Sinuses and mastoids appear clear. IMPRESSION: 1. No acute intracranial process. No visualized metastatic disease. 2. Moderate atrophy and chronic microvascular ischemic changes. Dictated by: Lynne Coffman M.D. on 02/28/2024 at 17:19 Approved by: Lynne Coffman M.D. on 02/28/2024 at 17:22
== END ==
PROVIDERS: PCP Physician Assistant; Referring Provider Internal Medicine; Visit Provider Internal Medicine
DX: C34.11 Malignant neoplasm of upper lobe, right bronchus or lung
CPT/HCPCS: 70553; A9579